=== PATIENT | female | born 1995 | race Caucasian/White ===

== ENCOUNTER 2017-07-28 15:16 | Emergency (ER) | payer SELFPAY ==
[2017-07-28 18:00] LABS: BILIRUBIN,URINE NEGATIVE (NEGATIVE); GLUCOSE, URINE (UA) NEGATIVE (NEGATIVE); KETONES,URINE (UA) NEGATIVE (NEGATIVE); LEUKOCYTE ESTERASE, URINE SMALL (NEGATIVE); NITRITE,URINE NEGATIVE (NEGATIVE); OCCULT BLOOD,URINE NEGATIVE (NEGATIVE); PROTEIN,URINE NEGATIVE (NEGATIVE); UROBILINOGEN,URINE 0.2 (NORMAL) E.U./dL (NORMAL)
[2017-07-28 18:01] LABS: CLARITY,URINE CLEAR (CLEAR)
[2017-07-28 18:09] LABS: BACTERIA,URINE Few /HPF (None Seen); RBC,URINE 0-5 /HPF (0-5); SQUAMOUS EPITHELIAL CELL,UR MOD Squamous (<= Few)
--- NOTE | 2017-07-28 18:47 | ED Physician Documentation ---
History of Present Illness - Stated complaint Stated Complaint: FEMALE - Chief complaint Chief Complaint: General - Additonal information Additional information: hx from pt 21 female LMP early Jun to ER with pelvic pain mid and left side and vag dc concern for STD - she received a text stating "you should get checked - i am sorry" no fever Review of Systems Constitutional: denies: Fever Cardiac: denies: Chest pain / pressure Respiratory: denies: Dyspnea GI: reports: Abdominal Pain : reports: Discharge. denies: Dysuria, Vaginal bleeding, Now EGA PD PAST MEDICAL HISTORY - Past Medical History Past Medical History: No - Present Medications Home Medications: Ambulatory Orders Medication Instructions Recorded Confirmed Doxycycline Hyclate 100 mg PO BID #27 capsule 07/28/17 - Allergies Allergies/Adverse Reactions: Allergies Allergy/AdvReac Type Severity Reaction Status Date / Time amoxicillin Allergy Unknown Verified 07/28/17 15:34 codeine Allergy Anaphylaxis Verified 07/28/17 15:34 gabapentin Allergy Unknown Verified 07/28/17 15:34 Penicillins Allergy Unknown Verified 07/28/17 15:34 - Social History Does the pt smoke?: No Smoking Status: Never smoker PD ED PE NORMAL - Vitals Vital signs reviewed: Yes - Neck Neck: Supple, no meningeal sign - Cardiac Cardiac: RRR - Respiratory Respiratory: No respiratory distress - Abdomen Abdomen: Soft, Non tender - Female Female : Roving Inspector present (Eliane), Other (erytehmatous friable cervic with purlent dc, midl CMT and uterine tenderness, diann adnxea mildly TTP but no fullness apppreciated) Results - Vitals Vitals: Vital Signs - 24 hr 07/28/17 07/28/17 07/28/17 15:29 18:41 19:19 Temperature 36.5 C 36.6 C 36.7 C Heart Rate 87 82 72 Respiratory 16 15 16 Rate Blood Pressure 116/55 L 121/65 134/73 H O2 Saturation 100 100 100 Oxygen O2 Source Room air - Labs Labs: Microbiology 07/28/17 18:00 Wet Prep - Final Cervix Laboratory Tests 07/28/17 07/28/17 17:48 17:48 Urine Color YELLOW Urine Clarity CLEAR Urine pH 6.0 Ur Specific [place] 1.015 1.015 Urine Protein NEGATIVE Urine Glucose (UA) NEGATIVE Urine Ketones NEGATIVE Urine Occult Blood NEGATIVE Urine Nitrite NEGATIVE Urine Bilirubin NEGATIVE Urine Urobilinogen 0.2 (NORMAL) Ur Leukocyte Esterase SMALL H Urine RBC 0-5 Urine WBC 0-3 Ur Squamous Epith Cells MOD Squamous H Urine Bacteria Few Ur Microscopic Review INDICATED Urine Culture Comments NOT INDICATED Urine HCG, Qual NEGATIVE PD MEDICAL DECISION MAKING - ED course ED course: no trich and < 20% clue cells will dc with doxy as long as HCG neg HCG neg gave rocephin and watched pt carefully - no rxn despite hx rash with amox will dc on doxy no need for flagyl as wet mount is neg Departure - Departure Disposition: 01 Home, Self Care Clinical Impression: PID (acute pelvic inflammatory disease) Condition: Good Instructions: ED PID Follow-Up: Isai Swartz MD [Provider Admit Priv/Credential] - (in clinic for a recheck - please call to schedule) Prescriptions: Doxycycline Hyclate 100 mg PO BID #27 capsule Comments: Take the antibiotics as prescribed. You can call the ER in 3-5 days for the culture results Return if worse as we discussed
[2017-07-28] MEDS ORDERED: LIDOCAINE 1% 2 ML VIAL SUBQ ONE (18:50)
[2017-07-28] MEDS ORDERED: cefTRIAXone 250 MG VIAL IM STA (18:50)
[2017-07-28] MEDS ORDERED: DOXYCYCLINE 100 MG TABLET PO STA (19:00)
[2017-07-28 19:01] LABS: HCG UR QUAL NEGATIVE
[2017-07-28 19:20] VITALS: BP 134/73
== END 2017-07-28 19:54 | disposition home or self-care (01) ==
LOC: ED 15:16
DX: N73.0 Acute parametritis and pelvic cellulitis (principal)
CPT/HCPCS: 81001; 81025; 87210; 87491; 87591; 96372; 99283; 99284; A9270; 81003; 87086

== ENCOUNTER 2017-09-06 11:34 | Emergency (ER) | payer OTHER ==
[2017-09-06 11:57] VITALS: BP 147/73
[2017-09-06] MEDS ORDERED: ACETAMINOPHEN 325 MG TABLET PO STA (12:25)
[2017-09-06] MEDS ORDERED: IBUPROFEN 400 MG TABLET PO STA (12:25)
--- NOTE | 2017-09-06 12:35 | ED Physician Documentation ---
History of Present Illness - Stated complaint Stated Complaint: LEFT WRIST/FINGERS INJ - Chief complaint Chief Complaint: Ext Problem - Additonal information Additional information: hx from pt 21 female works at [employer] a nicolasa grabbed her left non dom hand by fingers 2/4 and bent wrist back and twisted severe wist and hand pain denies preg Review of Systems : denies: Now EGA Musculoskeletal: reports: Extremity pain PD PAST MEDICAL HISTORY - Past Medical History Past Medical History: No - Past Surgical History Past Surgical History: Yes HEENT: Tonsil/Adenoidectomy, Other - Allergies Allergies/Adverse Reactions: Allergies Allergy/AdvReac Type Severity Reaction Status Date / Time amoxicillin Allergy Unknown Verified 09/06/17 11:58 codeine Allergy Anaphylaxis Verified 09/06/17 11:58 gabapentin Allergy Unknown Verified 09/06/17 11:58 Penicillins Allergy Unknown Verified 09/06/17 11:58 - Social History Does the pt smoke?: No Smoking Status: Never smoker Does the pt drink ETOH?: Yes Does the pt have substance abuse?: No - Immunizations Immunizations are current?: Yes PD ED PE NORMAL - Vitals Vital signs reviewed: Yes - Extremities Extremities: Other (L wist TTP diffusely, mild swelling, TTP MT 2-4, some 3rd MCP swelling, fingers feel tingly but can feel them, motor intact, brisk cap refill, + radial pulse) Results - Vitals Vitals: Vital Signs - 24 hr 09/06/17 11:53 Temperature 36.6 C Heart Rate 74 Respiratory 18 Rate Blood Pressure 147/73 H O2 Saturation 100 Oxygen O2 Source Room air - Rads (name of study) wrist Radiology: See rad report (neg) hand Radiology: See rad report (neg) Departure - Departure Disposition: 01 Home, Self Care Clinical Impression: Sprain of hand, left Qualifiers: Encounter type: initial encounter Qualified Code(s): S63.92XA - Sprain of unspecified part of left wrist and hand, initial encounter Sprain of wrist, left Qualifiers: Encounter type: initial encounter Qualified Code(s): S63.502A - Unspecified sprain of left wrist, initial encounter Condition: Good Instructions: ED Splint Care Velcro, ED Sprain Hand, ED Sprain Wrist Comments: Thankfully the xrays do not show any fractures or dislocations Please wear the splint as needed for comfort and support, apply ice for 20 min three times a day, take motrin and tylenol as needed for the pain If still painful in two weeks, please follow up with your PMD for a recheck and consideration of further imaging
--- NOTE | 2017-09-06 13:08 | XRAY Report ---
EXAM: LEFT HAND RADIOGRAPHY EXAM DATE: 09/06/2017 12:56 PM. CLINICAL HISTORY: Hyperext twist injury. COMPARISON: None. TECHNIQUE: 3 views. FINDINGS: Bones: Normal. No fractures or bone lesions. Joints: Normal. No subluxations. Soft Tissues: Normal. No soft tissue swelling. IMPRESSION: No acute osseous abnormality. [facility] Referring Provider Line: [phone] SITE ID: [id number]
--- NOTE | 2017-09-06 13:10 | XRAY Report ---
EXAM: LEFT WRIST RADIOGRAPHY EXAM DATE: 09/06/2017 12:55 PM. CLINICAL HISTORY: Hyperextension twist injury. COMPARISON: None. TECHNIQUE: 4 views. FINDINGS: Bones: Normal. No fractures or bone lesions. Joints: Normal. No subluxations. Soft Tissues: Normal. No soft tissue swelling. IMPRESSION: Normal wrist radiography. [facility] Referring Provider Line: [phone] SITE ID: [id number]
== END 2017-09-06 13:51 | disposition home or self-care (01) ==
LOC: ED 11:34
DX: S63.92XA Sprain of unspecified part of left wrist and hand, initial encounter (principal); S63.502A Unspecified sprain of left wrist, initial encounter; X50.9XXA Other and unspecified overexertion or strenuous movements or postures, initial encounter; Y92.89 Other specified places as the place of occurrence of the external cause; Y99.0 Civilian activity done for income or pay
CPT/HCPCS: 1040M; 73110; 73130; 99282; A9270

== ENCOUNTER 2017-11-28 15:11 | Emergency (ER) | payer OTHER ==
[2017-11-28] MEDS ORDERED: predniSONE 20 MG TABLET PO STA (15:24)
[2017-11-28] MEDS ORDERED: ALBUTEROL NEB 2.5 MG/3 ML INH STA ×2 (15:24)
[2017-11-28 15:28] VITALS: BP 147/94
--- NOTE | 2017-11-28 15:46 | ED Physician Documentation ---
History of Present Illness - Stated complaint Stated Complaint: SOB - Chief complaint Chief Complaint: General - History obtained from History obtained from: Patient - History of Present Illness Timing: How many days ago (3) Pain level max: 0 Pain level now: 0 Improved by: inhaler helped slightly Worsened by: walking, coughing - Additonal information Additional information: states feeling short of breath for the past few days. Tried her inhaler without relief. No fevers. Mild dry cough. Review of Systems Constitutional: denies: Fever, Chills Nose: reports: Rhinorrhea / runny nose, Congestion Cardiac: denies: Chest pain / pressure Respiratory: reports: Cough, Wheezing GI: denies: Nausea, Vomiting, Diarrhea : denies: Dysuria, Now EGA Skin: denies: Rash PD PAST MEDICAL HISTORY - Past Medical History Past Medical History: No - Past Surgical History Past Surgical History: Yes HEENT: Tonsil/Adenoidectomy, Other - Present Medications Home Medications: Ambulatory Orders Medication Instructions Recorded Confirmed Albuterol Sulf [Ventolin Hfa 1 - 2 puffs INH Q4HR PRN #1 inhaler 11/28/17 Inhaler] predniSONE [Prednisone] 40 mg PO DAILY #10 tablet 11/28/17 - Allergies Allergies/Adverse Reactions: Allergies Allergy/AdvReac Type Severity Reaction Status Date / Time amoxicillin Allergy Unknown Verified 11/28/17 15:22 codeine Allergy Anaphylaxis Verified 11/28/17 15:22 gabapentin Allergy Unknown Verified 11/28/17 15:22 Penicillins Allergy Unknown Verified 11/28/17 15:22 - Social History Does the pt smoke?: No Smoking Status: Never smoker Does the pt drink ETOH?: Yes Does the pt have substance abuse?: No - Immunizations Immunizations are current?: Yes - POLST Patient has POLST: No PD ED PE NORMAL - Vitals Vital signs reviewed: Yes - General General: Alert and oriented X 3, No acute distress - HEENT HEENT: Moist mucous membranes - Neck Neck: Supple, no meningeal sign - Cardiac Cardiac: RRR - Respiratory Respiratory: No respiratory distress, Other (wheezing B) - Abdomen Abdomen: Soft, Non tender, Non distended - Derm Derm: Warm and dry - Extremities Extremities: No edema, No calf tenderness / cord - Neuro Neuro: Alert and oriented X 3 Results - Vitals Vitals: Vital Signs - 24 hr 11/28/17 11/28/17 15:20 15:38 Temperature 37.2 C Heart Rate 90 92 Respiratory 20 16 Rate Blood Pressure 147/94 H O2 Saturation 98 Oxygen O2 Source Room air PD MEDICAL DECISION MAKING - ED course Complexity details: re-evaluated patient, considered differential, d/w patient ED course: Patient is a 21-year-old female who presents to the emergency department with an asthma exacerbation. Feels better after nebulizer treatment and steroids. Will place her on an inhaler for home and have her follow-up with her doctor for further care. Her current albuterol inhaler last year. Patient counseled regarding signs and symptoms for which I believe and urgent re- evaluation would be necessary. Patient with good understanding of and agreement to plan and is comfortable going home at this time This document was made in part using voice recognition software. While efforts are made to proofread this document, sound alike and grammatical errors may occur. No hypoxia. No fever. No respiratory distress. Departure - Departure Disposition: Home, Self Care Clinical Impression: Asthma Qualifiers: Asthma severity: unspecified severity Asthma persistence: unspecified Asthma complication type: unspecified Qualified Code(s): J45.909 - Unspecified asthma, uncomplicated Condition: Good Instructions: ED Reactive Airway Disease Follow-Up: your,doctor in 1 week [Other] Prescriptions: Albuterol Sulf [Ventolin Hfa Inhaler] 1 - 2 puffs INH Q4HR PRN #1 inhaler PRN Reason: Shortness Of Air/Wheezing predniSONE [Prednisone] 40 mg PO DAILY #10 tablet Comments: Return if you worsen. This should improve over the next few days. Discharge Date/Time: 11/28/17 15:57
== END 2017-11-28 15:57 | disposition home or self-care (01) ==
LOC: ED 15:11
DX: J45.901 Unspecified asthma with (acute) exacerbation (principal)
CPT/HCPCS: 94640; 94664; 99283; J7512